=== PATIENT | female | born 1985 | race Caucasian/White ===

== ENCOUNTER 2017-03-27 14:30 | Outpatient (RCR) | payer OTHER, SELFPAY | END 2017-03-27 23:59 | LOC: PT 14:30 | PROVIDERS: Visit Provider Family Medicine Geriatric Medicine | DX: M54.5 Low back pain (principal); R26.89 Other abnormalities of gait and mobility | CPT/HCPCS: 97110; 97162 ==

== ENCOUNTER 2017-05-22 13:00 | Outpatient (RCR) | payer OTHER, SELFPAY | END 2017-05-22 13:05 | disposition home or self-care (01) | LOC: PT 13:00 | PROVIDERS: Visit Provider Family Medicine Geriatric Medicine | DX: M54.5 Low back pain (principal); R26.89 Other abnormalities of gait and mobility | CPT/HCPCS: 97010; 97014; 97110; 97140; 97164; G0283 ==

== ENCOUNTER 2018-07-31 07:44 | Emergency (ER) | payer OTHER, SELFPAY ==
[2018-07-31 07:51] VITALS: BP 121/69; PULSE 54; RESP 17; TEMP 36.9; O2SAT 99; BMI 26.2
[2018-07-31 08:15] VITALS: BP 127/72; PULSE 50; RESP 16; O2SAT 100
--- NOTE | 2018-07-31 08:18 | HMH.EDGENADL ---
ED Disposition Clinical Impression: Rash Disposition: Home, Self-Care Condition on Discharge: Good Instructions: DI for Rash Additional Instructions: Prednisone and hydroxyzine as prescribed. Follow-up with primary care provider if not improved in 4 to 5 days. Prescriptions: predniSONE [Prednisone 10mg Tab Dose-Pack] 10 mg PO DAILY #42 pack hydrOXYzine pamoate [Vistaril] 25 mg PO Q6H #20 cap Referrals: Provider,Referral, [Primary Care Provider] - - Critical Care Critical Care Time: No Attestation: On 07/31/18, the high probability of a clinically significant, sudden or life threatening deterioration of the following system(s) required my full and direct attention, intervention and personal management. The time I documented below is in addition to time spent performing reported procedures but includes the following listed in this critical care notation. Medical Decision Making - Chris Inquiry Pt receiving controlled substance: No Vital Signs: 07/31/18 07:51 Temperature 98.4 F Temperature Source Oral Pulse Rate [Right Radial] 54 L Respiratory Rate 17 Blood Pressure [Right Arm] 121/69 Blood Pressure Mean [Right Arm] 86 Blood Pressure Source [Right Arm] Automatic Cuff Blood Pressure Position [Right Arm] Sitting 02 Sat by Pulse Oximetry 99 Oxygen Delivery Method Room Air Orders (Tests/Meds): ED MEDICATIONS Generic Name Dose Route Start Last Admin Trade Name Freq PRN Reason Stop Dose Admin Sodium Chloride 1,000 mls @ 999 mls/hr 07/31/18 08:00 Sod Chlor 0.9% 1000ml Bag IV 07/31/18 09:00 .Q1H1M CHRIS Discontinued Medications Generic Name Dose Route Start Last Admin Trade Name Freq PRN Reason Stop Dose Admin Diphenhydramine HCl 25 mg 07/31/18 08:00 Benadryl 50mg/1ml Vial IV 07/31/18 08:01 ONCE ONE Famotidine 20 mg 07/31/18 08:00 Pepcid 20mg/2ml Vial IV 07/31/18 08:01 ONCE ONE Methylprednisolone Sodium Succinate 125 mg 07/31/18 08:00 Solu-Medrol 125mg/2ml Vial IV 07/31/18 08:01 ONCE ONE ORDERS Category Date Time Status CMP [Comprehensive Metabolic Panel] Stat Lab 07/31/18 07:59 Ordered Complete Blood Count Auto Diff Stat Lab 07/31/18 07:59 Ordered Medical Decision Narrative: Advised patient that diagnosis of poison jorge cannot be made at this point with the lack of vesicles. However it could be early poison jorge or allergic reaction, and treatment would be the same for either. I will treat with antihistamines and steroids. General Adult HPI - General Chief complaint: Allergic Reaction Stated complaint: woke up to swollen face Time Seen by Provider: 07/31/18 08:10 Mode of Arrival: Ambulatory Limitations: No Limitations Description of Symptoms (Recalled from ER Triage Doc. by RN): Pt states that she woke up with her face swollen with an ithcy face. States nothing new that she can think of to cause the reaction other than pulling weeds the other day outside. Denies any itchy throat. Thinks maybe it is poison jorge. - History of Present Illness HPI narrative: States she woke up with red, itchy, swollen face and also a little bit on her left arm. She thinks it is an allergic reaction or poison jorge. She did pull weeds the other day. No blisters. - Related Data Previous Rx's Medication Instructions Recorded hydrOXYzine pamoate [Vistaril] 25 mg PO Q6H #20 cap 07/31/18 predniSONE [Prednisone 10mg Tab 10 mg PO DAILY #42 pack 07/31/18 Dose-Pack] Allergies Allergy/AdvReac Type Severity Reaction Status Date / Time No Known Allergies Allergy Unverified 03/18/17 14:05 [facility] History - Hepatitis A Screen Drug use history?: No High risk sexual behaviors?: No History of sexually transmitted infection?: No Currently employed?: No Childcare worker?: No Do you have indoor plumbing?: Yes Do you have electricity?: Yes Attestation statement:: This patient has been screened for Hepatitis A risk factors. I have rev
--- NOTE | 2018-07-31 08:21 | ED_ITS ---
ED Disposition Clinical Impression: Rash Disposition: Home, Self-Care Condition on Discharge: Good Instructions: DI for Rash Additional Instructions: Prednisone and hydroxyzine as prescribed. Follow-up with primary care provider if not improved in 4 to 5 days. Prescriptions: predniSONE [Prednisone 10mg Tab Dose-Pack] 10 mg PO DAILY #42 pack hydrOXYzine pamoate [Vistaril] 25 mg PO Q6H #20 cap Referrals: Provider,Referral, [Primary Care Provider] - - Critical Care Critical Care Time: No Attestation: On 07/31/18, the high probability of a clinically significant, sudden or life threatening deterioration of the following system(s) required my full and direct attention, intervention and personal management. The time I documented below is in addition to time spent performing reported procedures but includes the following listed in this critical care notation. Medical Decision Making - Chris Inquiry Pt receiving controlled substance: No Vital Signs: 07/31/18 07:51 Temperature 98.4 F Temperature Source Oral Pulse Rate [Right Radial] 54 L Respiratory Rate 17 Blood Pressure [Right Arm] 121/69 Blood Pressure Mean [Right Arm] 86 Blood Pressure Source [Right Arm] Automatic Cuff Blood Pressure Position [Right Arm] Sitting 02 Sat by Pulse Oximetry 99 Oxygen Delivery Method Room Air Orders (Tests/Meds): ED MEDICATIONS Generic Name Dose Route Start Last Admin Trade Name Freq PRN Reason Stop Dose Admin Sodium Chloride 1,000 mls @ 999 mls/hr 07/31/18 08:00 Sod Chlor 0.9% 1000ml Bag IV 07/31/18 09:00 .Q1H1M CHRIS Discontinued Medications Generic Name Dose Route Start Last Admin Trade Name Freq PRN Reason Stop Dose Admin Diphenhydramine HCl 25 mg 07/31/18 08:00 Benadryl 50mg/1ml Vial IV 07/31/18 08:01 ONCE ONE Famotidine 20 mg 07/31/18 08:00 Pepcid 20mg/2ml Vial IV 07/31/18 08:01 ONCE ONE Methylprednisolone Sodium Succinate 125 mg 07/31/18 08:00 Solu-Medrol 125mg/2ml Vial IV 07/31/18 08:01 ONCE ONE ORDERS Category Date Time Status CMP [Comprehensive Metabolic Panel] Stat Lab 07/31/18 07:59 Ordered Complete Blood Count Auto Diff Stat Lab 07/31/18 07:59 Ordered Medical Decision Narrative: Advised patient that diagnosis of poison jorge cannot be made at this point with the lack of vesicles. However it could be early poison jorge or allergic reaction, and treatment would be the same for either. I will treat with antihistamines and steroids. General Adult HPI - General Chief complaint: Allergic Reaction Stated complaint: woke up to swollen face Time Seen by Provider: 07/31/18 08:10 Mode of Arrival: Ambulatory Limitations: No Limitations Description of Symptoms (Recalled from ER Triage Doc. by RN): Pt states that she woke up with her face swollen with an ithcy face. States nothing new that she can think of to cause the reaction other than pulling weeds the other day outside. Denies any itchy throat. Thinks maybe it is poison jorge. - History of Present Illness HPI narrative: States she woke up with red, itchy, swollen face and also a little bit on her left arm. She thinks it is an
[2018-07-31 08:24] LABS: Basophils % 0.5 % (0.1-2.0); Eosinophils # 0.2 K/mm3 (0.0-0.4); Hematocrit 38.8 % (37.0-47.0); Hemoglobin 13.3 g/dL (12.2-16.2); Lymphocytes # 2.3 K/mm3 (0.7-4.5); Lymphocytes % 47.7 % (10-50); Mean Corpuscular HGB Conc 34.2 g/dL (31.8-35.4); Mean Corpuscular Hemoglobin 31.7 pg (27.0-31.2); Mean Corpuscular Volume 92.5 fl (81-99); Mean Platelet Volume 8.1 fl (7.4-10.4); Monocytes # 0.3 K/mm3 (0.1-1.0); Monocytes % 7.1 % (1.7-9.3); Neutrophils # 1.9 K/mm3 (1.8-7.8); Neutrophils % 40.8 % (37.0-80.0); Platelet Count 191 K/mm3 (142-424); Red Cell Distribution Width 12.8 % (11.5-17.5); White Blood Count 4.7 K/mm3 (4.8-10.8)
--- NOTE | 2018-07-31 08:25 | PC.NURSE ---
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 stated to not give medicine at this time
[2018-07-31 08:30] VITALS: BP 120/74; PULSE 50; O2SAT 100
[2018-07-31 08:35] LABS: Alanine Aminotransferase 42 U/L (12-78); Albumin Level 3.7 gm/dL (3.4-5.0); Albumin/Globulin Ratio 0.9 (1.1-1.8); Alkaline Phosphatase 67 U/L (46-116); Anion Gap 9.8 mEq/L (5-15); Aspartate Amino Transferase 19 U/L (15-37); Bilirubin,Total 2.1 mg/dL (0.2-1.0); Blood Urea Nitrogen 13 mg/dL (7-18); Calcium 8.8 mg/dL (8.5-10.1); Carbon Dioxide 28 mmol/L (21.0-32.0); Chloride 105 mmol/L (98-107); Creatinine Clearance Estimated 131 mL/min (50-200); Creatinine,Serum 0.68 mg/dL (0.55-1.02); Estimated Glomerular Filt Rate 98 ml/min (>60); GFR (African American) 119 ML/MIN (>60); Globulin 4.1 gm/dl (1.3-3.2); Glucose 90 mg/dL (74-106); Potassium 3.8 mmoL/L (3.5-5.1); Sodium 139 mmol/L (136-145); Total Protein,Serum 7.8 gm/dL (6.4-8.2)
[2018-07-31 09:00] VITALS: BP 133/63; PULSE 59; O2SAT 99
[2018-07-31 09:34] VITALS: BP 112/62; PULSE 73; RESP 17; TEMP 36.7; O2SAT 98
== END 2018-07-31 09:39 | disposition home or self-care (01) ==
PROVIDERS: Emergency Provider Emergency Medicine
DX: R21 Rash and other nonspecific skin eruption (principal)
CPT/HCPCS: 80053; 85025; 96365; 96374; 96375; 99283

== ENCOUNTER 2019-10-03 11:08 | Emergency (ER) | payer OTHER, SELFPAY ==
[2019-10-03] VITALS (7 sets, daily range): BP systolic 108–176; BP diastolic 62–86; PULSE 41–54; RESP 16–18; TEMP 36.6–36.8; O2SAT 97–100; BMI 25.1
--- NOTE | 2019-10-03 | ECG_ITS ---
APPROVED REPORT Exam: Resting ECG HR:41 bpm ECG Measurements Heart Rate 41 AXES VA 160 P 63 QRSd 90 QRS 69 QT 442 T 4 QTc 364 <Conclusion> Marked sinus bradycardia with fusion complexes Late R-wave progression Abnormal ECG Electronically signed by : Dyllan Fay, 10/04/2019 17:12:56
--- NOTE | 2019-10-03 11:30 | CT_ITS ---
PROCEDURE: CT LUMBAR SPINE WO CON CLINICAL HISTORY: fall Left-sided back pain following injury COMPARISON: No exams were available for comparison TECHNIQUE: Axial images obtained with sagittal and coronal reformats. All CT scans at the facility use one or more dose reduction, viz: automated exposure control, ma/kV adjustment per patient size (including targeted exams where dose is matched to indication, i.e. head), or iterative reconstruction technique. FINDINGS: There are no previous exams available for comparison. There are inter pedicular screws at L2 and L3 with connecting rods directed superiorly with the superior aspect of the fixation device not identified on this exam. 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 There is mild wedge compression changes of L1 with loss of height centrally and anteriorly of approximately 20 percent and minimal retropulsion of the posterior superior aspect of the vertebral body by 3 mm.. There has been prior laminectomy at L1. Minimal bulging disc L5-L6 with facet ligamentum hypertrophy. There is small amount fluid in the cul-de-sac. IMPRESSION: Prior thoracolumbar surgery with stabilization rods and inter pedicular screws at L2-L3 with old compression fracture of L1 with minimal retropulsion. No acute fracture or dislocation. Mild degenerative changes Dictated by: Gurdeep Yang MD 10/03/2019 12:18 Electronically signed by Gurdeep Yang MD in [place] 10/03/2019 12:18
[2019-10-03 11:36] LABS: Microscopic, Urine URINE MICROSCOPIC (MICROSCOPIC)
[2019-10-03 11:37] LABS: Appearance,Urine CLEAR (Clear); Bilirubin,Urine Negative (Negative); Blood, Urine 3+ (Negative); Color,Urine YELLOW (Yellow); Glucose,Urine (UA) Negative (Negative); Ketones,Urine Negative (Negative); Leukocyte Esterase,Urine Negative (Negative); Nitrate,Urine Negative (Negative); PH,Urine 6.5 (5.0-8.5); Protein,Urine Negative (Negative)
[2019-10-03 11:40] LABS: Urine Pregnancy, HCG Qual. Negative (Negative)
[2019-10-03 11:41] LABS: Basophils % 0.4 % (0.1-2.0); Eosinophils # 0.2 K/mm3 (0.0-0.4); Eosinophils % 3.5 % (0.1-12.0); Hematocrit 38.9 % (37.0-47.0); Hemoglobin 13.3 g/dL (12.2-16.2); Lymphocytes # 2.3 K/mm3 (0.7-4.5); Lymphocytes % 44.6 % (10-50); Mean Corpuscular HGB Conc 34.2 g/dL (31.8-35.4); Mean Corpuscular Hemoglobin 33.1 pg (27.0-31.2); Mean Platelet Volume 8.7 fl (7.4-10.4); Monocytes # 0.3 K/mm3 (0.1-1.0); Monocytes % 5.6 % (1.7-9.3); Neutrophils # 2.4 K/mm3 (1.8-7.8); Neutrophils % 45.9 % (37.0-80.0); Platelet Count 203 K/mm3 (142-424); Red Blood Count 4.01 M/mm3 (4.20-5.40); Red Cell Distribution Width 12.7 % (11.5-17.5); White Blood Count 5.1 K/mm3 (4.8-10.8)
[2019-10-03 11:43] LABS: Amorphous Sediment,Urine 1+ /lpf; Bacteria,Urine 2+ /lpf; Chloride 104 mmol/L (98-107); Potassium 3.5 mmoL/L (3.5-5.1); Sodium 140 mmol/L (136-145); Squamous Epithelial Cell,Urine 20-50 #/hpf (0-5)
[2019-10-03 11:45] LABS: Alanine Aminotransferase 17 U/L (12-78); Blood Urea Nitrogen 15 mg/dl (7-17); Creatinine Clearance Estimated 120 mL/min (50-200); Estimated Glomerular Filt Rate 95 ml/min (>60); GFR (African American) 115 ML/MIN (>60)
[2019-10-03 11:46] LABS: Albumin Level 4.2 g/dl (3.5-5.0); Albumin/Globulin Ratio 1.4 (1.1-1.8); Alkaline Phosphatase 47 U/L (38-126); Anion Gap 12.5 mEq/L (5-15); Aspartate Amino Transferase 22 U/L (14-36); Bilirubin,Total 2.6 mg/dl (0.2-1.3); Calcium 8.7 mg/dl (8.4-10.2); Carbon Dioxide 27 mmol/L (22.0-30.0); Globulin 3.1 g/dL (1.3-3.2); Glucose 107 mg/dl (74-100); Total Protein,Serum 7.3 g/dl (6.3-8.2)
[2019-10-03 12:03] LABS: Troponin I < 0.01 ng/ml (0.00-0.034)
--- NOTE | 2019-10-03 12:05 | PC.NURSE ---
pt back from rad
--- NOTE | 2019-10-03 13:08 | HMH.EDGENADL ---
ED Disposition Clinical Impression: Lumbar dysfunction Disposition: Home, Self-Care Condition on Discharge: Good Instructions: DI for Syncope in Adults (Fainting), DI for Syncope in Children (Fainting) Prescriptions: methylPREDNISolone [Medrol 4mg tab] 4 mg PO DIRECTED #21 tab Transmission Status: Pending to [facility] Nabumetone 750 mg PO BID 10 Days #20 tab Transmission Status: Pending to [facility] Tizanidine HCl [Zanaflex 4mg tablet] 4 mg PO TID 10 Days #30 tab Transmission Status: Pending to [facility] Referrals: Provider,Referral, [Primary Care Provider] - - Critical Care Critical Care Time: No Attestation: On 10/03/19, the high probability of a clinically significant, sudden or life threatening deterioration of the following system(s) required my full and direct attention, intervention and personal management. The time I documented below is in addition to time spent performing reported procedures but includes the following listed in this critical care notation. Medical Decision Making - Medical Records Medical records reviewed: Yes: I reviewed the patient's medical records. - Chris Inquiry Pt receiving controlled substance: No Vital Signs: 10/03/19 11:08 10/03/19 11:15 10/03/19 11:36 Temperature 98.2 F 98.2 F Temperature Source Oral Oral Pulse Rate [Left Radial] 54 L 54 L Pulse Rate [Orthostatic Lying Right Radial] 44 L Pulse Rate [Orthostatic Standing Right Radial] 45 L Respiratory Rate 16 18 Blood Pressure [Left Arm] 140/86 140/86 Blood Pressure [Orthostatic Lying Right Arm] 118/62 Blood Pressure [Orthostatic Standing Right Arm] 113/68 Blood Pressure Mean [Left Arm] 104 104 Blood Pressure Source [Left Arm] Automatic Cuff Blood Pressure Position [Left Arm] Sitting Supine 02 Sat by Pulse Oximetry 100 100 Oxygen Delivery Method Room Air Room Air 10/03/19 11:56 10/03/19 12:57 Temperature Temperature Source Pulse Rate [Left Radial] 53 L 44 L Pulse Rate [Orthostatic Lying Right Radial] Pulse Rate [Orthostatic Standing Right Radial] Respiratory Rate 16 Blood Pressure [Left Arm] 108/65 L 117/66 Blood Pressure [Orthostatic Lying Right Arm] Blood Pressure [Orthostatic Standing Right Arm] Blood Pressure Mean [Left Arm] 79 83 Blood Pressure Source [Left Arm] Automatic Cuff Automatic Cuff Blood Pressure Position [Left Arm] Supine Supine 02 Sat by Pulse Oximetry 99 97 Oxygen Delivery Method Room Air - Lab Data Lab results reviewed: Yes: I reviewed the patient's lab results. Lab Results 10/03/19 11:24: Urine Color Yellow, Urine Appearance Clear, Urine pH 6.5, Ur Specific [place] 1.020, Urine Protein Negative, Urine Glucose (UA) Negative, Urine Ketones Negative, Urine Blood 3+, Urine Nitrate Negative, Urine Bilirubin Negative, Urine Urobilinogen 1.0, Ur Leukocyte Esterase Negative, Urine RBC 5-10, Urine WBC 3-5, Ur Squamous Epith Cells 20-50, Amorphous Sediment 1+, Urine Bacteria 2+ 10/03/19 11:24: Urine HCG, Qual Negative 10/03/19 11:24: WBC 5.1, RBC 4.01 L, Hgb 13.3, Hct 38.9, MCV 97.0, MCH 33.1 H, MCHC 34.2, RDW 12.7, Plt Count 203, MPV 8.7, Neut % (Auto) 45.9, Lymph % (Auto) 44.6, Cocke % (Auto) 5.6, Eos % (Auto) 3.5, Baso % (Auto) 0.4, Neut # (Auto) 2.4, Lymph # (Auto) 2.3, Cocke # (Auto) 0.3, Eos # (Auto) 0.2, Baso # (Auto) 0.0 10/03/19 11:24: Sodium 140, Potassium 3.5, Chloride 104, Carbon Dioxide 27, Anion Gap 12.5, BUN 15, Creatinine 0.70, Estimated Creat Clear 120, Estimated GFR 95, Est GFR ( Amer) 115, Glucose 107 H, Calcium 8.7, Total Bilirubin 2.6 H, AST 22, ALT 17, Alkaline Phosphatase 47, Troponin I < 0.01, Total Protein 7.3, Albumin 4.2, Globulin 3.1, Albumin/Globulin Ratio 1.4 Result diagrams: 10/03/19 11:24 10/03/19 11:24 Orders (Tests/Meds): ORDERS Category Date Time Status Troponin I Q3H Lab 10/03/19 14:45 Ordered Troponin I Q3H Lab 10/03/19 17:45 Ordered Urine Culture Stat Micro
== END 2019-10-03 15:06 | disposition home or self-care (01) ==
PROVIDERS: Emergency Provider Family Medicine
DX: M48.9 Spondylopathy, unspecified (principal); R55 Syncope and collapse; W19.XXXA Unspecified fall, initial encounter
CPT/HCPCS: 72131; 80053; 81001; 81025; 84484; 85025; 87086; 93005; 96374; 96375; 99284

== ENCOUNTER 2021-10-15 17:04 | Emergency (ER) | payer OTHER, SELFPAY ==
[2021-10-15 17:06] VITALS: BP 164/85; PULSE 56; RESP 16; TEMP 36.9; O2SAT 100; BMI 29.3
--- NOTE | 2021-10-15 17:28 | PC.NURSE ---
pt given warm blanket for comfort on R side of head/ear
--- NOTE | 2021-10-15 17:42 | HMH.EDEAR ---
ED Disposition Clinical Impression: Otitis externa Qualifiers: Otitis externa type: swimmer's ear Chronicity: acute Laterality: right Qualified Code(s): H60.331 - Swimmer's ear, right ear Disposition: Home, Self-Care Condition on Discharge: Good Instructions: Otitis Externa Additional Instructions: Off work today through and including . Return for worsening pain fever or other concerns. Prescriptions: Neomyc/Colist/Hydrocort/Thonzn [Cortisporin-Tc Ear Suspension] 10 ml OT DAY #10 ml Transmission Status: Received by [facility] Hydrocodone/Acetaminophen [Hydrocodone-Acetamin 7.5-325] 1 each PO QID PRN #12 tab PRN Reason: Ear Pain Transmission Status: Received by [facility] Referrals: Provider,Referral, [Primary Care Provider] - - Critical Care Critical Care Time: No Attestation: On , the high probability of a clinically significant, sudden or life threatening deterioration of the following system(s) required my full and direct attention, intervention and personal management. The time I documented below is in addition to time spent performing reported procedures but includes the following listed in this critical care notation. Medical Decision Making - Medical Records Medical records reviewed: Yes: I reviewed the patient's medical records. - Chris Inquiry Pt receiving controlled substance: No Vital Signs: 10/15/21 17:06 10/15/21 17:45 Temperature 98.4 F 98.5 F Temperature Source Oral Oral Pulse Rate 60 Pulse Rate [Right Radial] 56 L Respiratory Rate 16 20 Blood Pressure 160/90 H Blood Pressure [Right Arm] 164/85 H Blood Pressure Mean [Right Arm] 111 Blood Pressure Source Automatic Cuff Blood Pressure Source [Right Arm] Automatic Cuff Blood Pressure Position Sitting Blood Pressure Position [Right Arm] Sitting 02 Sat by Pulse Oximetry 100 Oxygen Delivery Method Room Air Room Air Orders (Tests/Meds): ED MEDICATIONS Discontinued Medications Generic Name Dose Route Start Last Admin Trade Name Freq PRN Reason Stop Dose Admin Ibuprofen 600 mg 10/15/21 17:37 10/15/21 17:40 Ibuprofen 600 Mg Tablet PO 10/15/21 17:38 600 mg ONCE ONE Administration Ear HPI - General Chief complaint: Ear Stated complaint: R ear pain Time Seen by Provider: 10/15/21 17:42 Mode of Arrival: Ambulatory Source of Information: Patient Limitations: No Limitations Description of Symptoms (Recalled from ER Triage Doc. by RN): Pt reports severe R ear pain. Pt reports pain began Friday afternoon, reports it was not long after going swimming. Pt denies fever or drainage from ear. Pt reports feeling like shes underwater as far as hearing difficulty. - History of Present Illness HPI Narrative: Presents complaining of severe right ear pain that began Friday after swimming. Pain is worse with certain positions. She denies fever she denies additional symptoms such as jaw pain or chest pain. No drainage from the ear. - Related Data Previous Rx's Medication Instructions Recorded Hydrocodone/Acetaminophen 1 each PO QID PRN #12 tab 10/15/21 [Hydrocodone-Acetamin 7.5-325] Neomyc/Colist/Hydrocort/Thonzn 10 ml OT 5XDAY #10 ml 10/15/21 [Cortisporin-Tc Ear Suspension] Allergies Allergy/AdvReac Type Severity Reaction Status Date / Time No Known Allergies Allergy Unverified 03/18/17 14:05 [facility] History - Hepatitis A Screen Attestation statement:: This patient has been screened for Hepatitis A risk factors. I have reviewed the patient's past medical history: Yes Medical History: Denies:: Diabetes Mellitus Type 1, Diabetes Mellitus Type 2 Fractures: Yes - Social History Alcohol Intake: never Alcohol Intake Frequency:: holidays/special occasions only Occupational Status: other Housing: other Household Members: other ROS Obtained: Yes All systems reviewed & no additional complaints Physical Exam - General General appearance:
[2021-10-15 17:45] VITALS: BP 160/90; PULSE 60; RESP 20; TEMP 36.9; O2SAT 100
== END 2021-10-15 17:45 | disposition home or self-care (01) ==
PROVIDERS: Emergency Provider Emergency Medicine
DX: H60.331 Swimmer's ear, right ear (principal)
CPT/HCPCS: 99283

== ENCOUNTER 2022-03-11 07:05 | Emergency (ER) | payer OTHER, SELFPAY ==
[2022-03-11] VITALS (11 sets, daily range): BP systolic 120–175; BP diastolic 59–117; PULSE 60–78; RESP 14–18; TEMP 36.7–36.8; O2SAT 97–100; BMI 30.5
--- NOTE | 2022-03-11 07:05 | ECG_ITS ---
APPROVED REPORT Exam: Resting ECG HR:59 bpm ECG Measurements Heart Rate 59 AXES NJ 168 P 50 QRSd 84 QRS 24 QT 364 T -10 QTc 363 Conclusion SINUS BRADYCARDIA WITH MARKED SINUS ARRHYTHMIA NONSPECIFIC T-WAVE ABNORMALITY BORDERLINE ECG UNCONFIRMED REPORT Electronically signed by : Dyllan Fay MD 03/11/2022 19:56:14
--- NOTE | 2022-03-11 07:13 | XR_ITS ---
FINAL REPORT TECHNIQUE: Single view chest CLINICAL HISTORY: CHEST PAIN FINDINGS: A single view of the chest was obtained. The heart and mediastinum are within normal limits. There is mild right base atelectasis or scarring. There is no pneumothorax. Spinal rods are noted. IMPRESSION: Mild right base atelectasis or scarring. Reviewed, Interpreted and Dictated by Brett Gandhi III, MD Transcribed by Luz Elena Bernal Authenticated and . [facility]
[2022-03-11 07:34] LABS: Basophils % 0.8 % (0.1-2.0); Eosinophils # 0.1 K/mm3 (0.0-0.4); Eosinophils % 1.3 % (0.1-12.0); Hematocrit 44.7 % (37.0-47.0); Hemoglobin 14.7 g/dL (12.2-16.2); Lymphocytes # 1.4 K/mm3 (0.7-4.5); Lymphocytes % 36.5 % (10-50); Mean Corpuscular HGB Conc 32.8 g/dL (31.8-35.4); Mean Corpuscular Hemoglobin 30.9 pg (27.0-31.2); Mean Corpuscular Volume 94.2 fl (81-99); Mean Platelet Volume 8.9 fl (7.4-10.4); Monocytes # 0.3 K/mm3 (0.1-1.0); Monocytes % 7.3 % (1.7-9.3); Neutrophils # 2.1 K/mm3 (1.8-7.8); Neutrophils % 54.1 % (37.0-80.0); Platelet Count 204 K/mm3 (142-424); Red Blood Count 4.75 M/mm3 (4.20-5.40); Red Cell Distribution Width 12.9 % (11.5-17.5); White Blood Count 3.9 K/mm3 (4.8-10.8)
[2022-03-11 07:44] LABS: Chloride 104 mmol/L (98-107); Potassium 3.7 mmoL/L (3.5-5.1); Sodium 140 mmol/L (136-145)
[2022-03-11 07:47] LABS: Anion Gap 9.7 mEq/L (5-15); Blood Urea Nitrogen 15 mg/dl (7-17); Carbon Dioxide 30 mmol/L (22.0-30.0); Creatinine Clearance Estimated 139 mL/min (50-200); Estimated Glomerular Filt Rate 94 ml/min (>60); GFR (African American) 113 ML/MIN (>60)
[2022-03-11 07:48] LABS: Calcium 9.2 mg/dl (8.4-10.2); Glucose 101 mg/dl (74-100)
--- NOTE | 2022-03-11 07:52 | PC.NURSE ---
XR AT BEDSIDE
--- NOTE | 2022-03-11 07:56 | PC.NURSE ---
DR. FELICIANO AT BEDSIDE FOR EVALUATION
[2022-03-11 08:04] LABS: Troponin I < 0.01 ng/ml (0.00-0.034)
--- NOTE | 2022-03-11 08:30 | PC.NURSE ---
3330 ROUNDED ON PT, NO NEEDS VOICED. CALL LIGHT WITHIN REACH
--- NOTE | 2022-03-11 08:40 | HMH.EDGENADL ---
Discharge Plan Disposition Patient Disposition: Home, Self-Care Condition: Good Prescriptions Prescriptions: New famotidine [Pepcid] 20 mg tablet 20 mg PO BID 14 Days Qty: 28 0RF No Action kjisypae-fotjzb-AJ-thonzonium 10 ML drops,suspension 10 ml OT 5XDAY Qty: 10 0RF hydrocodone-acetaminophen 1 EACH tablet 1 each PO QID PRN (Reason: Ear Pain) Qty: 12 0RF Clinical Impressions Clinical Impression: Chest pain Instructions Patient Instructions: DI for Chest Pain Discharge ED Provider: John Fernandez General Adult HPI General Chief complaint: Chest Pain Stated complaint: chest pain Time Seen by Provider: 03/11/22 08:00 Mode of Arrival: Ambulatory Source of Information: Patient Limitations: No Limitations Description of Symptoms (Recalled from ER Triage Doc. by RN): PT REPORTS CHEST PAIN TO LEFT UPPER CHEST, HAD SINCE ABOUT 529. REPORTS TINGLING OF LEFT AHND THAT HAS RESOLVED History of Present Illness HPI narrative: Patient is a 36-year-old female with no pertinent past medical history who presents with concern for chest pain. She says that she woke up around 530 this morning and noted that she had some substernal chest pain. She locates it really only in the middle of her chest. It does not radiate from there. Describes it as a burning sensation. She has not taken any medications for it. She says that she got up and moved around her house and got a little bit better but did not go completely away. She denies any nausea or diaphoresis. Denies any shortness of breath. Denies any fever or chills. Denies any abdominal pain Related Data Previous Rx's Medication Instructions Recorded hydrocodone 7.5 mg-acetaminophen 1 each PO QID PRN Ear Pain #12 tabs 10/15/21 325 mg tablet mqjgervj-ybmbyj-JW-thonzonm 3.3 10 ml otic (ear) 5XDAY #10 mL 10/15/21 mg-3 mg-10 mg-0.5 mg/mL ear drops,susp famotidine 20 mg tablet (Pepcid) 20 mg PO BID 2 weeks #28 tabs 03/11/22 Allergies Allergy/AdvReac Type Severity Reaction Status Date / Time No Known Allergies Allergy Unverified 03/18/17 14:05 [facility] Disclaimer: The information contained in this section may have been updated after the patient was seen, as this information can be updated by other users. Social History Smoking Status: Never smoker alcohol intake: never current occupational status: other Travel in the last 8 weeks: None household members: other housing: other ROS Obtained: Yes All systems reviewed & no additional complaints except as documented A 14 point review of system was obtained and otherwise negative except per HPI Physical Exam General General appearance: alert and in no apparent distress Head Head exam: atraumatic, normocephalic and normal inspection Eye Eye exam: Present normal appearance, PERRL and EOMI ENT ENT exam: Present normal exam, normal oropharynx, mucous membranes moist, TM's normal bilaterally and normal external ear exam Neck Neck exam: Present normal inspection, full ROM and trachea midline; Absent meningismus or lymphadenopathy Chest Chest inspection: Present normal inspection and symmetric chest wall rise; Absent tenderness Respiratory Respiratory exam: Present normal lung sounds bilaterally; Absent respiratory distress Cardiovascular Cardiovascular exam: Present regular rate and normal rhythm; Absent JVD Abdominal Exam Abdominal exam: Present soft and normal bowel sounds; Absent distention, tenderness or guarding Extremities Exam Extremities exam: Present normal inspection, full ROM and normal capillary refill; Absent calf tenderness Back Exam Back exam: Present normal inspection; Absent tenderness Neurological Exam Neurological exam: Present alert and oriented X3 Psychiatric Psychiatric exam: Present normal affect and normal mood Skin Skin exam: Present warm, dry, intact and normal color Lymphatic Lymphatic Findings: no adenopathy Medical Decision Making Medical Recor
--- NOTE | 2022-03-11 08:57 | PC.NURSE ---
PT MEDICATED PER EMAR, NO NEEDS AT THIS TIME
--- NOTE | 2022-03-11 10:03 | PC.NURSE ---
TROP COLLECTED AT THIS TIME. PT WITHOUT NEEDS, UPDATED ON POC
[2022-03-11 10:33] LABS: Troponin I < 0.01 ng/ml (0.00-0.034)
== END 2022-03-11 11:10 | disposition home or self-care (01) ==
PROVIDERS: Emergency Medicine; Emergency Provider Student in an Organized Health Care Education/Training Program
DX: R07.9 Chest pain, unspecified (principal)
CPT/HCPCS: 36415; 71045; 80048; 84484; 85025; 93005; 99284

== ENCOUNTER 2024-12-03 15:36 | Emergency (ER) | payer SELFPAY ==
[2024-12-03 15:37] VITALS: BP 135/88; PULSE 64; RESP 18; TEMP 36.8; O2SAT 100; BMI 30.4
--- NOTE | 2024-12-03 15:42 | ECG_ITS ---
APPROVED REPORT Exam: Resting ECG HR:78 bpm ECG Measurements Heart Rate 78 AXES NJ 170 P 59 QRSd 86 QRS 17 QT 354 T -8 QTc 387 Conclusion SINUS RHYTHM WITH SINUS ARRHYTHMIA NONSPECIFIC T-WAVE ABNORMALITY BORDERLINE ECG UNCONFIRMED REPORT Electronically signed by : Marvin Schafer, 12/03/2024 23:28:50
--- OUTSIDE RECORDS SUMMARY | 2024-12-03 15:43 | XMS_ITS | Clinical Summary ---
Author Organization [facility] Arrhythmia [facility] Address [address] [facility] [address] [place] [address] Phone Care Team Providers Care Fire Suppression Captain Name Role Phone Casimiro Coreas MD Unavailable [phone] Allergies No known active allergies Medications No known medications Active Problems Problem Noted Date Diagnosed Date Sinus bradycardia Syncope and collapse Overview (10/05/2015): S/p MDT Linq ILR implant & EP Study (No inducible arrhythmia on EP study)-10/05/15-Dr. Coreas PVCs (premature ventricular contractions) Surgical History Surgery Date Site/Laterality Comments TYMPANOSTOMY TUBE PLACEMENT 1998 OTHER SURGICAL HISTORY 10/05/15 T Linq ILR implant-Dr. Coreas OTHER SURGICAL HISTORY 10/05/15 EP Study (No inducible arrhythmia on EP study)-Dr. Coreas Medical History Medical History Date Comments Syncope and collapse Sinus bradycardia PVCs (premature ventricular contractions) LBBB (left bundle branch block) Family History Medical History Relation Name Comments Cancer Mother Diabetes Mother High Blood Pressure Mother Relation Name Status Comments Mother Social History Tobacco Use Types Packs/Day Years Used Date Smoking Tobacco: Never Smokeless Tobacco: Never Alcohol Use Standard Drinks/Week Comments No 0 (1 standard drink = 0.6 oz pur e alcohol) Comments No Sex and Gender Information Value Date Recorded Sex Assigned at Not on file Legal Sex Female 12:31 PM EDT Gender Identity Not on file Sexual Orientation Not on file Obstetrics History Last Filed Vital Signs Vital Sign Reading Time Taken Comments Blood Pressure 122/84 04/13/2019 10:20 AM EST Pulse 51 04/13/2019 10:20 AM EST Temperature 36.8 C (98.3 F) 10/13/2015 3:49 PM EDT Respiratory Rate 20 10/05/2015 2:00 PM EDT Oxygen Saturation 98% 04/13/2019 10:20 AM EST Inhaled Oxygen Concentration - - Weight 67.9 kg (149 lb 9.6 oz) 04/13/2019 10:20 AM EST Height 165.1 cm (5' 5 ) 04/13/2019 10:20 AM EST Body Mass Index 24.89 04/13/2019 10:20 AM EST Plan of Treatment Health Maintenance Due Date Last Done Comments DTaP/TDaP/Td (1 - Tdap) 06/19/2002 Hepatitis B Vaccine (1 of 3 - 19+ 3-dose series) 06/19/2002 HPV/Pap Cotest 06/19/2013 Annual Wellness Exam 09/07/2016 09/08/2015 (Postponed) Cervical Cancer Screening 09/07/2018 Pap Smear 09/07/2018 09/08/2015 (Postponed) Breast Cancer Screening 2023 COVID-19 Vaccine (1 - 2023-2 5 season) 2023 Influenza Vaccine (#1) 2024 Meningococcal B Vaccine Aged Out No l onger eligible based on patient's age to complete this topic Pneumococcal Vaccine 0-49 Aged Out No longer eligible based on patient's age to complete this topic Medical Devices Implanted Type Area Nuisance Wildlife Specialist Device Identifier Shelf Expiration Date Model / Serial / Lot Reveal Linq Product System Device And Monitor - [id number] Implanted:Qty: 1 on 10/05/2015 by Casimiro Coreas MD at [facility] [employer]:PACING SYS LINQSYS / [id number] / Insurance [employer] [place] [place] Care Teams Fire Suppression Captain Relationship Specialty Start Date End Date Casimiro Coreas MD [address] [place] [address] [place] [address] Consulting Physician Internal Medicine - Clinical Cardiac Electrophysiology 01/02/17
--- OUTSIDE RECORDS SUMMARY | 2024-12-03 15:43 | XMS_ITS | Encounter Summary ---
Author Organization [place] [address] Care Team Providers Care Web Solutions Architect Name Role Phone Casimiro Coreas MD Unavailable [phone] Encounter Details Date Type Department Care Team (Late st Contact Info) Description 04/06/2017 Orders Only SE[facility] Arrhythmia Ctr Edg [address] [facility] [address] [place] [id number] Casimiro Coreas MD [address] [place], [place] [id number] Social History Tobacco Use Types Packs/Day Years Used Date Smoking Tobacco: Never Smokeless Tobacco: Never Alcohol Use Standard Drinks/Week Comments No 0 (1 standard drink = 0.6 oz pur e alcohol) Comments No Sex and Gender Information Value Date Recorded Sex Assigned at Not on file Legal Sex Female 12:31 PM EDT Gender Identity Not on file Sexual Orientation Not on file documented as of this encounter Plan of Treatment Not on file documented as of this encounter Procedures Procedure Name Priority Date/Time Associated Diagnosis Comments PACEART REPORT Routine 04/06/2017 11:11 PM EST documented in this encounter Results * PACEART REPORT (04/06/2017 11:11 PM EST) 04/06/2017 11:1 1 PM EST Narrative [facility] - 04/08/2017 2:38 PM EST Summary report. 15 pause events recorded. No pauses. Under sensed R waves. Leslie Marino RN us Casimiro Coreas MD [facility] CARDIAC CATH ORDERAB LES Edited Result - Final [facility] [address] [place] [address] documented in this encounter Visit Diagnoses Not on filedocumented in this encounter Care Teams Web Solutions Architect Relationship Specialty Start Date End Date Casimiro Coreas MD [address] [place] [address] Consulting Physician Internal Medicine - Clinical Cardiac Electrophysiology 01/02/17 documented as of this encounter
--- OUTSIDE RECORDS SUMMARY | 2024-12-03 15:43 | XMS_ITS | Clinical Summary ---
Author Organization [facility] Address [address] [id number] Care Team Providers Care Greige Goods Examiner Name Role Phone Kerwin Chiu Primary Care Provider Social History Tobacco Use Types Packs/Day Years Used Date Smoking Tobacco: Never Comments Unknown Sex and Gender Information Value Date Recorded Sex Assigned at Not on file Legal Sex Female 6:01 PM EDT Gender Identity Not on file Sexual Orientation Not on file Last Filed Vital Signs Vital Sign Reading Time Taken Comments Blood Pressure 120/84 04/18/2017 2:16 PM EST Pulse - - Temperature - - Respiratory Rate - - Oxygen Saturation - - Inhaled Oxygen Concentration - - Weight 70.9 kg (156 lb 4.9 oz) 04/18/2017 2:16 P M EST Height 165.1 cm (5' 5 ) 04/18/2017 2:16 PM EST Body Mass Index 26.01 04/18/2017 2:16 PM EST Plan of Treatment Not on file Care Teams Greige Goods Examiner Relationship Specialty Start Date End Date Kerwin Chiu [facility] [address] [place] [address] PCP - General 08/11/20
--- OUTSIDE RECORDS SUMMARY | 2024-12-03 15:43 | XMS_ITS | Encounter Summary ---
Author Organization [place] [address] Care Team Providers Care Snow Removal/Plowing Name Role Phone Casimiro Coreas MD Unavailable Encounter Details Date Type Department Care Team (Late st Contact Info) Description 10/05/2015 Orders Only [facility] Arrhythmia Ctr Edg [address] [facility] [address] [place] [phone] Casimiro Coreas MD [address] [place], [place] [id number] Social History Tobacco Use Types Packs/Day Years [...] Date/Time Associated Diagnosis Comments PACEART REPORT Routine 10/05/2015 12:53 PM EDT documented in this encounter Results * PACEART REPORT (10/05/2015 12:53 PM EDT) 10/05/2015 12:5 3 PM EDT Narrative [facility] - 10/05/2015 12:33 PM EDT implant report us Casimiro Coreas MD [facility] CARDIAC CATH ORDERAB LES Final Result [facility] [address] [place] [address] documented in this encounter Visit Diagnoses Not on filedocumented in this encounter Care Teams Snow Removal/Plowing Relationship Specialty Start Date End Date Casimiro Coreas MD [address] [phone] Consulting Physician Internal Medicine - Clinical Cardiac Electrophysiology 01/02/17 documented as of this encounter
--- OUTSIDE RECORDS SUMMARY | 2024-12-03 15:43 | XMS_ITS | Encounter Summary ---
Author Organization [place] [address] Care Team Providers Care Casing Machine Operator Name Role Phone Casimiro Coreas MD Unavailable [phone] Encounter Details Date Type Department Care Team (Late st Contact Info) Description 10/05/2015 Orders Only SEP Arrhythmia Ctr Edg [address] [facility] [address] [place] [address] Casimiro Coreas MD [address] [place], [place] [id number] Social History Tobacco Use Types Packs/Day Years [...] Procedure Name Priority Date/Time Associated Diagnosis Comments EP LAB RECORDINGS Routine 10/05/2015 7:31 AM EDT documented in this encounter Results * EP LAB RECORDINGS (10/05/2015 7:31 AM EDT) 10/05/2015 7:31 AM EDT us Casimiro Coreas MD CARDIAC CATH ORDERABLES Final Result [facility] [address] [place] [address] documented in this encounter Visit Diagnoses Not on filedocumented in this encounter Care Teams Casing Machine Operator Relationship Specialty Start Date End Date Casimiro Coreas MD [address] [facility] [place] [address] Consulting Physician Internal Medicine - Clinical Cardiac Electrophysiology 01/02/17 documented as of this encounter
--- NOTE | 2024-12-03 15:47 | XR_ITS ---
FINAL REPORT CLINICAL HISTORY: dyspnea FINDINGS: A portable view of the chest was obtained. Cardiac and mediastinal silhouettes are within normal limits. The lungs are clear. There is no pleural effusion or pneumothorax. IMPRESSION: No acute process on this portable exam. Reviewed, Interpreted and Dictated by Tsering Herrera MD Transcribed by Meme Myers Authenticated and [facility]
--- NOTE | 2024-12-03 15:51 | HMH.EDCP ---
Discharge Plan Disposition Patient Disposition: Home, Self-Care Prescriptions Prescriptions: No Action famotidine [Pepcid] 20 mg tablet 20 mg PO BID 14 Days Qty: 28 0RF jfcbwsmj-rtxpxc-EC-thonzonium 10 ML drops,suspension 10 ml OT 5XDAY Qty: 10 0RF hydrocodone-acetaminophen 1 EACH tablet 1 each PO QID PRN (Reason: Ear Pain) Qty: 12 0RF prednisone [prednisone] 20 mg tablet 20 mg PO BID Qty: 10 0RF Referrals Follow up/Referrals: Provider,Rickie, [Primary Care Provider, Medical] - See instructions Shane Doran II, MD [Staff Physician, Gastroenterology] - See instructions Activity Restrictions/Add. Instructions Additional Instructions/Restrictions: Your working diagnosis with your symptoms today are idiopathic pleurisy which is a nonspecific inflammatory condition of the lining of your lungs. Additionally you have a very mildly abnormal AST and bilirubin which you have had in the past I recommend that you follow-up with Dr. Doran team for further evaluation and management of this. Clinical Impressions Clinical Impression: Pleurisy, Abnormal transaminases, Elevated bilirubin Print Language Print Language: Maori Discharge ED Provider: Judah Schafer HPI General Chief Complaint: Chest Pain Stated Complaint: Chest pain Time Seen by Provider: 12/03/24 15:43 History of Present Illness HPI narrative: 39-year-old presents today with pleuritic chest pain ongoing since Friday. Does have some dyspnea associated with this. No history of DVT or PE no lower extremity swelling no exogenous estrogen or hormone use. No family history of any clotting. No history of coronary artery disease etc. No preceding viral illnesses. Deep inspiration is the only exacerbating factor at the moment. Related Data Previous Rx's ?Medication ?Instructions ?Recorded hydrocodone 7.5 mg-acetaminophen 1 each PO QID PRN Ear Pain #12 tabs 10/15/21 325 mg tablet sdslrgws-qrqmfa-IX-thonzonm 3.3 10 ml otic (ear) 5XDAY #10 mL 10/15/21 mg-3 mg-10 mg-0.5 mg/mL ear drops,susp famotidine 20 mg tablet (Pepcid) 20 mg PO BID 2 weeks #28 tabs 03/11/22 prednisone 20 mg tablet 20 mg PO BID #10 tabs 05/04/22 Allergies Allergy/AdvReac Type Severity Reaction Status Date / Time No Known Allergies Allergy Unverified 05/14/24 12:14 [facility] Disclaimer: The information contained in this section may have been updated after the patient was seen, as this information can be updated by other users. Surgical History (Updated 05/14/24 @ 12:14 by Melodie Krishnan) History of tympanostomy tube placement History of tubal ligation Social History (System 05/14/24 @ 12:14 by Melodie Krishnan) Smoking Status: Never smoker alcohol intake: never current occupational status: other Travel in the last 8 weeks?: None household members: other housing: other Have you lived/traveled outside US in past 30 days?: No Contact w/someone who lives/traveled outside US past 30 days?: No Exposure to someone with infectious disease in past 14 days?: No Do you have a fever (greater than 100.4 F or 38 C)?: No Have you tested positive for COVID-19?: No Exposed to someone with COVID-19 in past 14 days?: No Do you have a sore throat?: No Do you have a cough?: No Do you have any weakness?: No Do you have any diarrhea?: No Are you experiencing any unusual bleeding?: No Do you have any muscle aches/pain?: No Do you have any abdominal pain?: No Are you experiencing loss of taste or smell?: No Other Medical History Have you received the Flu Vaccine for this season: No Have you received the Pneumonia Vaccine: No ROS Obtained: Yes All systems reviewed & no additional complaints except as documented Physical Exam General General appearance: alert Respiratory Respiratory exam: Present normal lung sounds bilaterally Cardiovascular Cardiovascular exam: Present regular rate; Absent normal rhythm Abdominal Exam Abdominal exam: Present soft and distention Neurological Exam Neurological exam: Present alert and oriented X3 HEART Score HEART Score HEART Score assessment performed?: Yes History (anamnesis): Slightly suspicious ECG: Normal Age: <45 years Risk factors: No known risk factors Troponin: </= normal limit HEART Score: 0 Critical Care Critical Care Time Critical Care Time: No Medical Decision Making Chris Inquiry Pt receiving controlled substance: No Vital Signs Vital Signs: 12/03/24 15:37 Temperature 98.2 F Temperature Source Oral Pulse Rate [Radial] 64 Respiratory Rate 18 Blood Pressure [Left Arm] 135/88 Blood Pressure Mean [Left Arm] 103 Blood Pressure Source [Left Arm] Automatic Cuff Blood Pressure Position [Left Arm] Sitting 02 Sat by Pulse Oximetry 100 Oxygen Delivery Method Room Air Lab Data Lab results reviewed: Yes I reviewed the patient's lab results. Labs: Lab Results 12/03/24 15:45: WBC 7.9, RBC 4.23, Hgb 13.5, Hct 39.6, MCV 93.6, MCH 31.9 H, MCHC 34.1, RDW 12.0, Plt Count 224, MPV 11.2 H, Neut % (Auto) 58.7, Lymph % (Auto) 32.9, Frontier % (Auto) 6.8, Eos % (Auto) 1.0, Baso % (Auto) 0.3, Neut # (Auto) 4.7, Lymph # (Auto) 2.6, Frontier # (Auto) 0.5, Eos # (Auto) 0.1, Baso # (Auto) 0.0, D-Dimer 0.56 H, Sodium 141, Potassium 3.9, Chloride 105, Carbon Dioxide 27, Anion Gap 12.9, BUN 16, Creatinine 0.80, Estimated Creat Clear 117, Estimated GFR 79, Est GFR ( Amer) 96, Glucose 109 H, Calcium 9.7, Total Bilirubin 1.5 H, AST 37 H, ALT 28, Alkaline Phosphatase 63, Troponin I < 0.01, NT-Pro-B Natriuret Pep 38.1, Total Protein 8.0, Albumin 4.7, Globulin 3.3 H, Albumin/Globulin Ratio 1.4 12/03/24 15:45 12/03/24 15:45 Response Orders (Tests/Meds): ED MEDICATIONS Discontinued Medications Generic Name Dose Route Start Last Admin Trade Name Aamirq PRN Reason Stop Dose Admin Lactated Ringer's 1,000 mls @ 999 mls/hr 12/03/24 16:00 12/03/24 16:04 Lactated Ringer's 1000 Ml Bag IV 12/03/24 17:00 999 mls/hr .Q1H1M CHRIS Administration Ketorolac Tromethamine 15 mg 12/03/24 15:47 12/03/24 16:03 Ketorolac 30mg/Ml Vial IV 12/03/24 15:48 15 mg ONCE ONE Administration ORDERS Category Date Time Status CXR --portable [XR chest portable] Stat Exams 12/03/24 15:47 Completed BNP [NT Pro Brain Natriuretic Pep.] Stat Lab 12/03/24 15:45 Completed CBC w/Auto Diff [Complete Blood Count Auto Diff] Stat Lab 12/03/24 15:45 Completed CMP [Comprehensive Metabolic Panel] Stat Lab 12/03/24 15:45 Completed D-Dimer Stat Lab 12/03/24 15:45 Completed HIV Combo Stat Lab 12/03/24 15:45 Received Hepatitis C Ab Qual. W/ RFX Stat Lab 12/03/24 15:45 Received Trop I [Troponin I] Stat Lab 12/03/24 15:45 Completed Troponin I Q3H Lab 12/03/24 19:00 Ordered Troponin I Q3H Lab 12/03/24 22:00 Ordered ECG Data Tracing #1: Attestation: I reviewed this ECG and interpreted as documented below: ECG Narrative: Ventricular rate is 78 normal sinus rhythm no acute ischemic changes noted normal axis no conduction abnormalities MDM Narrative Medical Decision Narrative: Patient with above history and physical most likely with idiopathic pleurisy. Will give Toradol and IV fluids. EKG was unremarkable will obtain a chest x-ray and a single troponin rule out any myocardial injury or acute coronary syndrome. Patient is technically PERC negative however given the fact that she does not have an obvious story to justify pleurisy such as a preceding viral illness we will obtain a D-dimer and utilize years criteria even though I do still believe that she is a very low risk with a cutoff of 1.[address] PE. Reassessment 511 patient feeling better labs unremarkable from emergency standpoint no indication for any CT PE utilizing years criteria. She does have mildly elevated total bilirubin and AST which has been seen in the past she is mildly overweight her this is most likely secondary to fatty liver but she has been advised to follow-up with our gastroenterology team for further evaluation and management of this. Working diagnosis for her emergency complaints today are idiopathic pleurisy.
[2024-12-03] MEDS: KETOROLAC 30MG/ML VIAL 15 MG IV (16:03)
[2024-12-03] MEDS: LACTATED RINGERS 1000ML 1,000 ML 999 ML IV (16:04)
[2024-12-03 16:06] LABS: Hematocrit 39.6 % (37.0-47.0); Hemoglobin 13.5 g/dL (12.2-16.2); Immature Granulocytes % 0.3 %; Mean Corpuscular HGB Conc 34.1 g/dL (31.8-35.4); Mean Corpuscular Hemoglobin 31.9 pg (27.0-31.2); Mean Corpuscular Volume 93.6 fl (81-99); Nucleated Red Blood Cells % 0 %; Platelet Count 224 K/mm3 (142-424); Red Blood Count 4.23 M/mm3 (4.20-5.40); Red Cell Distribution Width-SD 41.0 fL; White Blood Count 7.9 K/mm3 (4.8-10.8)
[2024-12-03 16:24] LABS: Alanine Aminotransferase 28 U/L (12-78); Albumin Level 4.7 g/dl (3.5-5.0); Albumin/Globulin Ratio 1.4 (1.1-1.8); Alkaline Phosphatase 63 U/L (38-126); Anion Gap 12.9 mEq/L (5-15); Aspartate Amino Transferase 37 U/L (14-36); Bilirubin,Total 1.5 mg/dl (0.2-1.3); Blood Urea Nitrogen 16 mg/dl (7-17); Calcium 9.7 mg/dl (8.4-10.2); Carbon Dioxide 27 mmol/L (22.0-30.0); Chloride 105 mmol/L (98-107); Creatinine Clearance Estimated 117 mL/min (50-200); Creatinine,Serum 0.80 mg/dl (0.52-1.04); Estimated Glomerular Filt Rate 79 ml/min (>60); GFR (African American) 96 ML/MIN (>60); Globulin 3.3 g/dL (1.3-3.2); Glucose 109 mg/dl (74-100); Potassium 3.9 mmoL/L (3.5-5.1); Sodium 141 mmol/L (136-145); Total Protein,Serum 8.0 g/dl (6.3-8.2)
[2024-12-03 16:28] LABS: D-Dimer 0.56 ug/mL (0.0-0.5)
[2024-12-03 16:37] LABS: NT Pro Brain Natriuretic Pep. 38.1 pg/mL (0-125)
[2024-12-03 16:42] LABS: Troponin I < 0.01 ng/ml (0.00-0.034)
[2024-12-03 17:13] LABS: Hepatitis C Ab Qual. W/ RFX NEGATIVE (Negative)
[2024-12-03 17:21] VITALS: BP 142/64; PULSE 52; RESP 16; TEMP 36.7; O2SAT 100
== END 2024-12-03 17:22 | disposition home or self-care (01) ==
PROVIDERS: Emergency Provider Student in an Organized Health Care Education/Training Program
DX: R09.1 Pleurisy (principal); R74.01 Elevation of levels of liver transaminase levels; E80.7 Disorder of bilirubin metabolism, unspecified
CPT/HCPCS: 71045; 80053; 83880; 84484; 85025; 85378; 86803; 87389; 93005; 96361; 96374; 99284; J1885; J7120